=== PATIENT | male | born 1965 | race Caucasian/White ===

== ENCOUNTER → 2018-12-20 | Outpatient (CLI) | payer OTHER ==
[2018-12-20 19:02] LABS: Anion Gap 10 mmol/L (6-16); Blood Urea Nitrogen 14 mg/dL (8-24); Bun/Creatinine Ratio 21.2 (12.0-20.0); CO2, Blood 28 mmol/L (21-32); Calcium, Blood 9.7 mg/dL (8.5-10.1); Chloride, Blood 98 mmol/L (98-108); Creatinine, Blood 0.66 mg/dL (0.60-1.20); Glomerular Filtration Rate >60 (60-); Glucose, Blood 146 mg/dL (70-99); Potassium, Blood 3.7 mmol/L (3.5-5.5); Sodium, Blood 136 mmol/L (136-145)
== END | disposition home or self-care (01) ==
LOC: LAB SHORT 17:51 → LAB 17:51
PROVIDERS: Emergency Medicine
DX: D49.511 Neoplasm of unspecified behavior of right kidney (principal)
CPT/HCPCS: 80048

== ENCOUNTER 2019-05-23 10:23 | Day surgery (SDC) | payer OTHER ==
[~2019-05-23] VITALS: Ht 182.9 cm; Wt 123.7 kg
[2019-05-23] MEDS ORDERED: VALS80 (11:13)
[2019-05-23] MEDS ORDERED: Azor 5-20 MG T1 EACH (11:13)
== END 2019-05-23 12:31 | disposition home or self-care (01) ==
LOC: ORSCSDS 10:23
PROVIDERS: Internal Medicine Gastroenterology
PROC: 0DBN8ZX Excision of Sigmoid Colon, Via Natural or Artificial Opening Endoscopic, Diagnostic (ICD-10-PCS; principal; 2019-05-23 11:45)
PROC: 0DBK8ZX Excision of Ascending Colon, Via Natural or Artificial Opening Endoscopic, Diagnostic (ICD-10-PCS; principal; 2019-05-23 11:45)
PROC: 0DBL8ZX Excision of Transverse Colon, Via Natural or Artificial Opening Endoscopic, Diagnostic (ICD-10-PCS; principal; 2019-05-23 11:45)
PROC: 0DBH8ZX Excision of Cecum, Via Natural or Artificial Opening Endoscopic, Diagnostic (ICD-10-PCS; principal; 2019-05-23 11:45)
PROC: 0DBM8ZX Excision of Descending Colon, Via Natural or Artificial Opening Endoscopic, Diagnostic (ICD-10-PCS; principal; 2019-05-23 11:45)
DX: Z12.11 Encounter for screening for malignant neoplasm of colon (principal); D12.3 Benign neoplasm of transverse colon; D12.2 Benign neoplasm of ascending colon; D12.0 Benign neoplasm of cecum; D12.4 Benign neoplasm of descending colon; D12.5 Benign neoplasm of sigmoid colon; K64.1 Second degree hemorrhoids; I10 Essential (primary) hypertension; Z79.899 Other long term (current) drug therapy
CPT/HCPCS: 88305; J2250; J2704; J7120

== ENCOUNTER 2020-06-11 08:41 | Day surgery (SDC) | payer OTHER ==
[~2020-06-11] VITALS: Ht 182.9 cm; Wt 131.6 kg
[~2020-06-11 08:41] MED LIST: AMLO10 PO; Azor 5-20 MG T1 EACH; LOSA25 PO; VALS80
[2020-06-11] MEDS ORDERED: VALS80 (09:14)
== END 2020-06-11 11:33 | disposition home or self-care (01) ==
LOC: ORSCSDS 08:41
PROVIDERS: Internal Medicine Gastroenterology
PROC: 0DBH8ZX Excision of Cecum, Via Natural or Artificial Opening Endoscopic, Diagnostic (ICD-10-PCS; principal; 2020-06-11 10:00)
PROC: 0DBN8ZX Excision of Sigmoid Colon, Via Natural or Artificial Opening Endoscopic, Diagnostic (ICD-10-PCS; principal; 2020-06-11 10:00)
PROC: 0DBL8ZX Excision of Transverse Colon, Via Natural or Artificial Opening Endoscopic, Diagnostic (ICD-10-PCS; principal; 2020-06-11 10:00)
PROC: 0DBK8ZX Excision of Ascending Colon, Via Natural or Artificial Opening Endoscopic, Diagnostic (ICD-10-PCS; principal; 2020-06-11 10:00)
DX: Z86.010 Personal history of colon polyps (principal); D12.0 Benign neoplasm of cecum; D12.2 Benign neoplasm of ascending colon; D12.3 Benign neoplasm of transverse colon; D12.5 Benign neoplasm of sigmoid colon; K64.8 Other hemorrhoids; I10 Essential (primary) hypertension; Z85.528 Personal history of other malignant neoplasm of kidney; Z79.899 Other long term (current) drug therapy; E66.01 Morbid (severe) obesity due to excess calories; Z68.39 Body mass index [BMI] 39.0-39.9, adult
CPT/HCPCS: 88305; J2250; J2405; J2704; J7120

== ENCOUNTER → 2022-05-13 | Outpatient (CLI) | payer OTHER | END | disposition home or self-care (01) | LOC: LAB 08:23 → LAB SHORT 08:23 | DX: L03.116 Cellulitis of left lower limb (principal) | CPT/HCPCS: 87070; 87077; 87186; 87205 ==

== ENCOUNTER → 2022-05-28 | Outpatient (CLI) | payer OTHER | END | disposition home or self-care (01) | LOC: LAB SHORT 17:02 | DX: L03.116 Cellulitis of left lower limb (principal); L97.522 Non-pressure chronic ulcer of other part of left foot with fat layer exposed | CPT/HCPCS: 87070; 87106; 87205 ==

== ENCOUNTER → 2022-09-22 | Outpatient (CLI) | payer OTHER ==
[~2022-09-22] MED LIST changes: +AMOCLA875 PO; +GLUCOPHAGE1000 M1 PO; +MULTI-VITAMIN1 EAC2 PO; +Milk Thistle175 M1 PO; +SULTRIDS PO; +VALS80 PO; +VALSARTAN-HCTZ1 EAC7 PO
== END | disposition home or self-care (01) ==
LOC: LAB 12:00 → LAB SHORT 12:00
DX: L97.522 Non-pressure chronic ulcer of other part of left foot with fat layer exposed (principal)
CPT/HCPCS: 87070; 87077; 87186; 87205

== ENCOUNTER 2022-09-23 10:16 | Inpatient (IN) | payer OTHER ==
[~2022-09-23] VITALS: Ht 185.4 cm; Wt 136.5 kg
[~2022-09-23 10:16] MED LIST changes: -AMOCLA875 PO; -GLUCOPHAGE1000 M1 PO; -MULTI-VITAMIN1 EAC2 PO; -Milk Thistle175 M1 PO; -SULTRIDS PO; -VALSARTAN-HCTZ1 EAC7 PO
[2022-09-23] MEDS ORDERED: GLUCOPHAGE1000 M1 PO (11:21)
[2022-09-23] MEDS ORDERED: VALSARTAN-HCTZ1 EAC7 PO (11:22)
[2022-09-23] MEDS ORDERED: Milk Thistle175 M1 PO (11:23)
[2022-09-23] MEDS ORDERED: MULTI-VITAMIN1 EAC2 PO (11:23)
--- NOTE | 2022-09-23 12:00 | NUR ---
PT ARRIVED TO ROOM 353 BY AMBULATION WITH AND DIRECTED TO ROOM APPROX 1050. ORIENTED TO ROOM AND SETTLED IN. MD NOTIFIED OF ARRIVAL AND CAME TO ROOM. PT REPORTS HE CAME DUE TO AN INFECTION TO THE BOTTOME OF HIS L FOOT IN A WOUND HE DEVELOPED OVER THE LAST WEEK. DRESSING PLACED BY DR. ROSENBERG YESTERDAY IN [facility] OFFICE. PT DENIES PAIN TO SITE EXCEPT OCC THROBBING PAIN. REPORTS HE HAS NEUROPATHY. AT BEDSIDE. APPEARS STABLE ON FEET AT ARRIVAL WALKING DOWN HALLWAY.
--- NOTE | 2022-09-23 18:21 | NUR ---
SHIFT SUMMARY PT INDEPENDENT IN ROOM. NO FEVERS SINCE ARRIVAL BUT TEMP IN 99'S. STEPH FROM WOUND CARE HERE TO SEE PT THIS AFTERNOON. CONSULT CALLED TO DR. ROSENBERG OFFICE. HAS DENIED PAIN TO LLE. REPORTS HE HAS VOIDED SEVERAL TIMES LARGE AMOUNTS. PLANS FOR PT TO MOVE TO ROOM 360
--- NOTE | 2022-09-24 05:09 | NUR ---
BAKERY ASSISTANT SUMMARY NO ACUTE EVENTS. PT A/OX4. INDEPENDENT IN ROOM. ABLE TO MAKE NEEDS KNOWN. PT DENIES PAIN. NO FEVER NOTED. PT CONT T/RCV IV ABOX P/EMAR. PT NPO EFFECTIVE 0000. PT TO HAVE PROCEDURE W/DR ALFONSO; PT EDUCATED ON NPO STATUS. CALL LIGHT ACCESSIBLE.
[2022-09-24 05:36] LABS: BASOPHILS ABSOLUTE AUTO 0.03 K/mm3 (0.00-0.23); BASOPHILS PERCENT AUTO 0 % (0-2); EOSINOPHILS ABSOLUTE AUTO 0.16 K/mm3 (0.00-0.68); EOSINOPHILS PERCENT AUTO 2 % (0-6); Hematocrit 33.4 % (37.0-53.0); Hemoglobin 11.2 g/dL (13.5-17.5); IMMATURE GRAN ABSOLUTE AUTO 0.03 K/mm3 (0.00-0.10); IMMATURE GRAN PERCENT AUTO 0 % (0-1); LYMPHOCYTES ABSOLUTE AUTO 1.05 K/mm3 (0.84-5.20); LYMPHOCYTES PERCENT AUTO 14 % (21-46); MONOCYTES ABSOLUTE AUTO 0.86 K/mm3 (0.16-1.47); MONOCYTES PERCENT AUTO 11 % (4-13); Mean Corpuscular HGB 29.4 pg (26.0-34.0); Mean Corpuscular HGB Conc 33.5 g/dL (31.5-36.5); Mean Corpuscular Volume 88 fL (80-100); Mean Platelet Volume 10.1 fL (9.1-12.4); NEUTROPHILS ABSOLUTE AUTO 5.65 K/mm3 (1.96-9.15); NEUTROPHILS PERCENT AUTO 73 % (41-73); Platelet Count 162 K/mm3 (150-400); RDW Coefficient Variation 12.5 % (11.7-14.2); Red Blood Cell Count 3.81 M/mm3 (4.30-5.90); White Blood Cell Count 7.78 K/mm3 (4.00-11.30)
[2022-09-24 06:03] LABS: Albumin, Blood 2.9 g/dL (3.4-5.0); Albumin/Globulin Ratio 0.9 (0.8-1.8); Bilirubin, Total 0.8 mg/dL (0.1-1.0); Bun/Creatinine Ratio 17.2 (12.0-20.0); Calcium, Blood 8.8 mg/dL (8.5-10.1); Creatinine, Blood 0.82 mg/dL (0.60-1.20); Globulin, Blood 3.4 g/dL (2.2-4.0); Potassium, Blood 3.7 mmol/L (3.5-5.5); Total Protein, Blood 6.3 g/dL (6.4-8.2)
--- NOTE | 2022-09-24 13:26 | NUR ---
INPT HERE FOR I & D OF LEFT FOOT. History, Chart, Medications and Allergies reviewed before start of procedure.
--- NOTE | 2022-09-24 15:11 | NUR ---
PATIENT BACK FROM RIGHT FOOT I&D, NO ACUTE CHANGES, PROCEDURE WNL, ALERT AND ORIENTED, REPORTED TO , CALL LIGHT WITH IN REACH
--- NOTE | 2022-09-24 18:42 | NUR ---
NO ACUTE CHANGES, I&D DONE TODAY, MOVEMENT AND SENSATION IN TOES ON THE RIGHT FOOT. CALL LIGHT WITH IN REACH, ALERT AND ORIENTED TO ALL
[2022-09-24 23:10] LABS: Vancomycin, Trough 10.9 ug/mL (5.0-10.0)
--- NOTE | 2022-09-25 05:03 | NUR ---
OIL GAUGER SUMMARY NO ACUTE EVENTS. PT A/OX4. ABLE TO MAKE NEEDS KNOWN. INDEPENDENT IN THE ROOM. PT DENIES PAIN T/O SHIFT. DRESSING TO LEFT FOOT IS CDI. SWELLING NOTED IN THE TOES, SENSATION AND CIRCULATION INTACT. HS BLOOD SUGAR 278; NO COVERAGE PER SLIDING SCALE. RCV IV ABOX. CALL LIGHT ACCESSIBLE.
[2022-09-25 06:28] LABS: BASOPHILS ABSOLUTE AUTO 0.01 K/mm3 (0.00-0.23); BASOPHILS PERCENT AUTO 0 % (0-2); EOSINOPHILS PERCENT AUTO 0 % (0-6); Hematocrit 35.1 % (37.0-53.0); Hemoglobin 11.9 g/dL (13.5-17.5); IMMATURE GRAN ABSOLUTE AUTO 0.06 K/mm3 (0.00-0.10); IMMATURE GRAN PERCENT AUTO 1 % (0-1); LYMPHOCYTES ABSOLUTE AUTO 0.71 K/mm3 (0.84-5.20); LYMPHOCYTES PERCENT AUTO 8 % (21-46); MONOCYTES ABSOLUTE AUTO 0.44 K/mm3 (0.16-1.47); MONOCYTES PERCENT AUTO 5 % (4-13); Mean Corpuscular HGB 28.9 pg (26.0-34.0); Mean Corpuscular HGB Conc 33.9 g/dL (31.5-36.5); Mean Corpuscular Volume 85 fL (80-100); Mean Platelet Volume 9.8 fL (9.1-12.4); NEUTROPHILS ABSOLUTE AUTO 8.14 K/mm3 (1.96-9.15); NEUTROPHILS PERCENT AUTO 87 % (41-73); Platelet Count 197 K/mm3 (150-400); RDW Coefficient Variation 11.9 % (11.7-14.2); RDW Standard Deviation 37.1 fL (35.1-46.3); Red Blood Cell Count 4.12 M/mm3 (4.30-5.90); White Blood Cell Count 9.36 K/mm3 (4.00-11.30)
[2022-09-25 06:49] LABS: Bun/Creatinine Ratio 19.3 (12.0-20.0); Calcium, Blood 9.1 mg/dL (8.5-10.1); Creatinine, Blood 0.78 mg/dL (0.60-1.20); Potassium, Blood 3.8 mmol/L (3.5-5.5)
[2022-09-25] MEDS ORDERED: AMOCLA875 PO (14:25)
[2022-09-25] MEDS ORDERED: SULTRIDS PO (14:26)
== END 2022-09-25 14:43 | disposition home or self-care (01) | DRG 872 ==
LOC: MEDS 10:16
PROVIDERS: Podiatrist; ADMIT Internal Medicine
PROC: 0J9R0ZZ Drainage of Left Foot Subcutaneous Tissue and Fascia, Open Approach (ICD-10-PCS; 2022-09-24)
PROC: 3E03329 Introduction of Other Anti-infective into Peripheral Vein, Percutaneous Approach (ICD-10-PCS; principal; 2022-09-24 13:00)
DX: A41.9 Sepsis, unspecified organism (principal); E87.20 Acidosis, unspecified; L97.526 Non-pressure chronic ulcer of other part of left foot with bone involvement without evidence of necrosis; L03.116 Cellulitis of left lower limb; Z28.21 Immunization not carried out because of patient refusal; I10 Essential (primary) hypertension; E78.5 Hyperlipidemia, unspecified; R65.20 Severe sepsis without septic shock; E11.610 Type 2 diabetes mellitus with diabetic neuropathic arthropathy; E11.621 Type 2 diabetes mellitus with foot ulcer; E11.628 Type 2 diabetes mellitus with other skin complications; E55.9 Vitamin D deficiency, unspecified; Z83.3 Family history of diabetes mellitus; Z82.49 Family history of ischemic heart disease and other diseases of the circulatory system; Z90.5 Acquired absence of kidney; Z98.890 Other specified postprocedural states; Z79.84 Long term (current) use of oral hypoglycemic drugs; Z79.899 Other long term (current) drug therapy
CPT/HCPCS: 36415; 80048; 80053; 80202; 82947; 83605; 85025; 87070; 87071; 87075; 87077; 87186; 87205; 96366; 96367; 96368; A9270; C1713; G0378; J0295; J1100; J1650; J1885; J2001; J2250; J2405; J2704; J2795; J3010; J3370; J7030; J7050

== ENCOUNTER → 2022-09-23 | Outpatient (CLI) | payer OTHER ==
[2022-09-23 08:28] LABS: BASOPHILS ABSOLUTE AUTO 0.04 K/mm3 (0.00-0.23); BASOPHILS PERCENT AUTO 0 % (0-2); EOSINOPHILS PERCENT AUTO 1 % (0-6); Hematocrit 38.9 % (37.0-53.0); Hemoglobin 13.5 g/dL (13.5-17.5); IMMATURE GRAN ABSOLUTE AUTO 0.05 K/mm3 (0.00-0.10); IMMATURE GRAN PERCENT AUTO 0 % (0-1); LYMPHOCYTES ABSOLUTE AUTO 0.79 K/mm3 (0.84-5.20); LYMPHOCYTES PERCENT AUTO 7 % (21-46); MONOCYTES ABSOLUTE AUTO 1.12 K/mm3 (0.16-1.47); MONOCYTES PERCENT AUTO 9 % (4-13); Mean Corpuscular HGB 29.4 pg (26.0-34.0); Mean Corpuscular HGB Conc 34.7 g/dL (31.5-36.5); Mean Corpuscular Volume 85 fL (80-100); Mean Platelet Volume 10.1 fL (9.1-12.4); NEUTROPHILS ABSOLUTE AUTO 10.03 K/mm3 (1.96-9.15); NEUTROPHILS PERCENT AUTO 83 % (41-73); Platelet Count 214 K/mm3 (150-400); RDW Coefficient Variation 12.5 % (11.7-14.2); RDW Standard Deviation 38.3 fL (35.1-46.3); Red Blood Cell Count 4.59 M/mm3 (4.30-5.90); White Blood Cell Count 12.13 K/mm3 (4.00-11.30)
[2022-09-23 08:36] LABS: Albumin, Blood 3.8 g/dL (3.4-5.0); Bilirubin, Total 0.3 mg/dL (0.1-1.0); Bun/Creatinine Ratio 11.4 (12.0-20.0); Calcium, Blood 9.5 mg/dL (8.5-10.1); Creatinine, Blood 1.14 mg/dL (0.60-1.20); Globulin, Blood 3.8 g/dL (2.2-4.0); Potassium, Blood 3.9 mmol/L (3.5-5.5); Total Protein, Blood 7.6 g/dL (6.4-8.2)
== END | disposition home or self-care (01) ==
LOC: LAB 08:16 → LAB SHORT 08:16
PROVIDERS: Physician Assistant
DX: E13.621 Other specified diabetes mellitus with foot ulcer (principal); L97.509 Non-pressure chronic ulcer of other part of unspecified foot with unspecified severity; R50.9 Fever, unspecified
CPT/HCPCS: 80053; 83605; 85025

== ENCOUNTER 2023-05-11 08:10 | Day surgery (SDC) | payer OTHER ==
[~2023-05-11] VITALS: Ht 181 cm; Wt 126.0 kg
[2023-05-11] VITALS (15 sets, daily range): BP systolic 115–163; BP diastolic 69–94
[~2023-05-11 08:10] MED LIST changes: +AMOCLA875 PO; +GLUCOPHAGE1000 M1 PO; +MULTI-VITAMIN1 EAC2 PO; +Milk Thistle175 M1 PO; +SULTRIDS PO; +VALSARTAN-HCTZ1 EAC7 PO
--- NOTE | 2023-05-11 08:42 | NUR ---
History, Chart, Medications and Allergies reviewed before start of procedure. Ambulatory in Day Surgery. Pre-Op teaching done. Pt verbalizes understanding. Patient confirms NPO status and agrees with scheduled surgery. Patient states colon prep results light yellow without sediment. Patient States Post-Procedure ride home has been arranged.
--- NOTE | 2023-05-11 08:42 | NUR ---
05/11/23 0842 Veronica Best HISTORY, CHART, MEDICATIONS AND ALLERGIES REVIEWED BEFORE START OF PROCEDURE. PATIENT CONFIRMS NPO STATUS AND AGREES WITH SCHEDULED PROCEDURE. 3-LEAD EKG REVIEWED WITH PHYSICIAN PRIOR TO START OF PROCEDURE. MONITOR INTACT WITH CONTINUOUS PULSE OXIMETRY,CAPNOGRAPHY, 3-LEAD EKG, INTERMITTENT BP. SUPPLEMENTAL O2 TO BE TITRATED THROUGHOUT PROCEDURE TO MAINTAIN O2 SATURATION ABOVE 90%. PATIENT DETERMINED TO BE ASA APPROPRIATE FOR PROPOFOL SEDATION PRIOR TO START OF PROCEDURE BY .
--- NOTE | 2023-05-11 09:35 | NUR ---
Patient up to Ambulate independently. Gait steady. Discharge instructions reviewed with patient. Patient verbalizes understanding. Copy given to patient to take home. Patient States Post-Procedure ride home has been arranged. Discharged via wheelchair to private car for ride home.
== END 2023-05-11 09:35 | disposition home or self-care (01) ==
LOC: ORSCMMR 08:10 → ORD 09:00 → ORSCMMR 09:00
PROVIDERS: Internal Medicine Gastroenterology
PROC: 0DJD8ZZ Inspection of Lower Intestinal Tract, Via Natural or Artificial Opening Endoscopic (ICD-10-PCS; principal; 2023-05-11 09:00)
DX: Z12.11 Encounter for screening for malignant neoplasm of colon (principal); Z86.010 Personal history of colon polyps; E11.9 Type 2 diabetes mellitus without complications; I10 Essential (primary) hypertension; E66.9 Obesity, unspecified; Z68.38 Body mass index [BMI] 38.0-38.9, adult; Z79.84 Long term (current) use of oral hypoglycemic drugs; Z79.899 Other long term (current) drug therapy
CPT/HCPCS: 82947; J2704; J7120

== ENCOUNTER → 2023-07-08 | Outpatient (CLI) | payer OTHER ==
[2023-07-08 08:39] LABS: BASOPHILS ABSOLUTE AUTO 0.05 K/mm3 (0.00-0.23); BASOPHILS PERCENT AUTO 1 % (0-2); EOSINOPHILS PERCENT AUTO 1 % (0-6); Hematocrit 35.7 % (37.0-53.0); Hemoglobin 12.3 g/dL (13.5-17.5); IMMATURE GRAN ABSOLUTE AUTO 0.02 K/mm3 (0.00-0.10); IMMATURE GRAN PERCENT AUTO 0 % (0-1); LYMPHOCYTES PERCENT AUTO 12 % (21-46); MONOCYTES ABSOLUTE AUTO 1.01 K/mm3 (0.16-1.47); MONOCYTES PERCENT AUTO 11 % (4-13); Mean Corpuscular HGB Conc 34.5 g/dL (31.5-36.5); Mean Corpuscular Volume 87 fL (80-100); Mean Platelet Volume 9.5 fL (9.1-12.4); NEUTROPHILS PERCENT AUTO 75 % (41-73); Platelet Count 181 K/mm3 (150-400); RDW Coefficient Variation 12.6 % (11.7-14.2); RDW Standard Deviation 39.9 fL (35.1-46.3); White Blood Cell Count 8.98 K/mm3 (4.00-11.30)
[2023-07-08 08:54] LABS: Albumin, Blood 3.4 g/dL (3.4-5.0); Albumin/Globulin Ratio 0.9 (0.8-1.8); Calcium, Blood 9.1 mg/dL (8.5-10.1); Creatinine, Blood 1.09 mg/dL (0.60-1.20); Globulin, Blood 3.9 g/dL (2.2-4.0); Potassium, Blood 3.6 mmol/L (3.5-5.5); Total Protein, Blood 7.3 g/dL (6.4-8.2)
== END | disposition home or self-care (01) ==
LOC: LAB 08:32 → LAB SHORT 08:32
PROVIDERS: Physician Assistant
DX: R50.9 Fever, unspecified (principal)
CPT/HCPCS: 80053; 83605; 85025

== ENCOUNTER → 2023-07-09 | Outpatient (CLI) | payer OTHER ==
[2023-07-09 10:15] LABS: BASOPHILS ABSOLUTE AUTO 0.04 K/mm3 (0.00-0.23); BASOPHILS PERCENT AUTO 1 % (0-2); EOSINOPHILS ABSOLUTE AUTO 0.21 K/mm3 (0.00-0.68); EOSINOPHILS PERCENT AUTO 3 % (0-6); Hematocrit 36.9 % (37.0-53.0); Hemoglobin 12.4 g/dL (13.5-17.5); IMMATURE GRAN ABSOLUTE AUTO 0.02 K/mm3 (0.00-0.10); IMMATURE GRAN PERCENT AUTO 0 % (0-1); LYMPHOCYTES PERCENT AUTO 14 % (21-46); MONOCYTES ABSOLUTE AUTO 0.93 K/mm3 (0.16-1.47); MONOCYTES PERCENT AUTO 13 % (4-13); Mean Corpuscular HGB 29.5 pg (26.0-34.0); Mean Corpuscular HGB Conc 33.6 g/dL (31.5-36.5); Mean Corpuscular Volume 88 fL (80-100); Mean Platelet Volume 9.9 fL (9.1-12.4); NEUTROPHILS PERCENT AUTO 70 % (41-73); Platelet Count 207 K/mm3 (150-400); RDW Coefficient Variation 12.6 % (11.7-14.2); RDW Standard Deviation 40.2 fL (35.1-46.3); Red Blood Cell Count 4.21 M/mm3 (4.30-5.90)
[2023-07-09 10:33] LABS: Bun/Creatinine Ratio 10.3 (12.0-20.0); Calcium, Blood 9.2 mg/dL (8.5-10.1); Creatinine, Blood 1.17 mg/dL (0.60-1.20); Potassium, Blood 3.8 mmol/L (3.5-5.5)
== END ==
LOC: LAB SHORT 10:11
PROVIDERS: Physician Assistant
DX: E13.621 Other specified diabetes mellitus with foot ulcer (principal)
CPT/HCPCS: 80048; 85025

== ENCOUNTER 2023-08-11 14:26 | Day surgery (SDC) | payer OTHER ==
[~2023-08-11] VITALS: Ht 182.9 cm; Wt 136.7 kg
[~2023-08-11 14:26] MED LIST changes: +AMLO10; -AMLO10 PO; +BACTRIM 400-801 EACH PO; +CeFAZolin Sodium 3,000 MG in NS 100 ML IV SCH; +FentaNYL Citrate 50 MCG/ML 2 ML Injection ONE; +GLUCOPHAGE1000 M1; -GLUCOPHAGE1000 M1 PO; +HYDR1TAB94 PO; +Midazolam HCl 1MG / ML 2ML Vial ONE; +Ropivacaine 0.5% HCl/Pf 5 MG/ML 20ML VIAL ONE; -SULTRIDS PO; +VALSARTAN-HCTZ1 EA10; -VALSARTAN-HCTZ1 EAC7 PO; +propofoL 20 ML IV ONE
[2023-08-11] MEDS ORDERED: ROSU5 PO (14:47)
[2023-08-11] MEDS ORDERED: Lactated Ringer's 1,000 ML IV ONE (14:56)
[2023-08-11] MEDS ORDERED: propofoL 20 ML IV ONE (15:55)
[2023-08-11] MEDS ORDERED: Ropivacaine 0.5% HCl/Pf 5 MG/ML 20ML VIAL INJ ONE ×2 (16:00)
[2023-08-11] MEDS ORDERED: Lidocaine HCl/Pf 1% 5 ML VIAL XX ONE (16:00)
[2023-08-11 16:46] VITALS: BP 121/82
== END 2023-08-11 16:55 | disposition home or self-care (01) ==
LOC: ORSCSDS 14:26
PROVIDERS: Podiatrist
PROC: 0JBR0ZX Excision of Left Foot Subcutaneous Tissue and Fascia, Open Approach, Diagnostic (ICD-10-PCS; principal; 2023-08-11 15:45)
PROC: 0QBP0ZZ Excision of Left Metatarsal, Open Approach (ICD-10-PCS; principal; 2023-08-11 15:45)
DX: M24.478 Recurrent dislocation, left toe(s) (principal); L97.522 Non-pressure chronic ulcer of other part of left foot with fat layer exposed; I10 Essential (primary) hypertension; Z79.899 Other long term (current) drug therapy; E11.9 Type 2 diabetes mellitus without complications; E78.00 Pure hypercholesterolemia, unspecified; Z79.84 Long term (current) use of oral hypoglycemic drugs; E66.01 Morbid (severe) obesity due to excess calories; Z68.41 Body mass index [BMI] 40.0-44.9, adult
CPT/HCPCS: 82947; 88305; 88311; J0690; J2001; J2250; J2704; J2795; J3010

== ENCOUNTER → 2024-01-21 | Outpatient (CLI) | payer OTHER ==
[~2024-01-21] MED LIST changes: -CeFAZolin Sodium 3,000 MG in NS 100 ML IV SCH; -FentaNYL Citrate 50 MCG/ML 2 ML Injection ONE; -Midazolam HCl 1MG / ML 2ML Vial ONE; +ROSU5 PO; -Ropivacaine 0.5% HCl/Pf 5 MG/ML 20ML VIAL ONE; -propofoL 20 ML IV ONE
[2024-01-21 10:10] LABS: BASOPHILS ABSOLUTE AUTO 0.04 K/mm3 (0.00-0.23); BASOPHILS PERCENT AUTO 1 % (0-2); EOSINOPHILS ABSOLUTE AUTO 0.18 K/mm3 (0.00-0.68); EOSINOPHILS PERCENT AUTO 2 % (0-6); Hemoglobin 12.9 g/dL (13.5-17.5); IMMATURE GRAN ABSOLUTE AUTO 0.03 K/mm3 (0.00-0.10); IMMATURE GRAN PERCENT AUTO 0 % (0-1); LYMPHOCYTES ABSOLUTE AUTO 1.13 K/mm3 (0.84-5.20); LYMPHOCYTES PERCENT AUTO 13 % (21-46); MONOCYTES ABSOLUTE AUTO 0.74 K/mm3 (0.16-1.47); MONOCYTES PERCENT AUTO 9 % (4-13); Mean Corpuscular HGB 29.4 pg (26.0-34.0); Mean Corpuscular HGB Conc 33.9 g/dL (31.5-36.5); Mean Corpuscular Volume 87 fL (80-100); Mean Platelet Volume 9.8 fL (9.1-12.4); NEUTROPHILS ABSOLUTE AUTO 6.59 K/mm3 (1.96-9.15); NEUTROPHILS PERCENT AUTO 76 % (41-73); Platelet Count 193 K/mm3 (150-400); RDW Coefficient Variation 13.1 % (11.7-14.2); RDW Standard Deviation 40.7 fL (35.1-46.3); Red Blood Cell Count 4.39 M/mm3 (4.30-5.90); White Blood Cell Count 8.71 K/mm3 (4.00-11.30)
[2024-01-21 10:15] LABS: Bun/Creatinine Ratio 17.4 (12.0-20.0); Calcium, Blood 9.5 mg/dL (8.5-10.1); Creatinine, Blood 0.92 mg/dL (0.60-1.20); Potassium, Blood 3.7 mmol/L (3.5-5.5)
== END | disposition home or self-care (01) ==
LOC: LAB 10:05 → LAB SHORT 10:05
PROVIDERS: Physician Assistant
DX: L03.116 Cellulitis of left lower limb (principal)
CPT/HCPCS: 80048; 85025